=== PATIENT | male | born 1990 | race Caucasian/White ===

== ENCOUNTER 2020-11-23 08:15 | Outpatient (CLI) | payer BC | END 2020-11-23 08:16 | disposition home or self-care (01) | LOC: BICMRI 08:15 | PROVIDERS: ATTEND Orthopaedic Surgery | DX: S83.8X1A Sprain of other specified parts of right knee, initial encounter (principal) ==

== ENCOUNTER 2020-12-04 09:56 | Outpatient (CLI) | payer BC ==
[2020-12-04 11:12] LABS: #Basophils 0.1 10x3/uL (0.0-0.2); #Eosinphils 0.3 10x3/uL (0.0-0.5); #Monocytes 0.5 10x3/uL (0.0-1.1); #Neutrophils 4.1 10x3/uL (1.5-8.4); %Basophils 1.1 % (0.0-2.0); %Eosinophils 3.9 % (0.0-6.0); %Lymphocytes 22.6 % (18.0-47.0); %Monocytes 7.5 % (0.0-10.0); %Neutrophils 64.6 % (40.0-75.0); Hemoglobin 14.5 g/dL (13.5-17.5); Mean Corpuscular HGB CONC 34.7 g/dL (32.0-36.0); Mean Corpuscular Hemoglobin 28.9 pg (27.0-33.0); Mean Corpuscular Volume 83.3 fl (81.2-95.1); Mean Platelet Volume 9.9 fl (7.4-10.4); Platelet Count 268 10x3/uL (150-450); RBC Distribution Width 13.2 % (11.5-14.5); Red Blood Cell (RBC) Count 5.02 10x6/uL (4.32-5.72); White Blood Cell (WBC) Count 6.4 10x3/uL (3.5-10.5)
[2020-12-05 00:53] LABS: SARS-CoV-2 PCR by NAA Not Detected (NotDetected)
== END 2020-12-04 09:57 | disposition home or self-care (01) ==
LOC: LABBT 09:56
PROVIDERS: ATTEND Orthopaedic Surgery
DX: Z01.812 Encounter for preprocedural laboratory examination (principal); S86.811A Strain of other muscle(s) and tendon(s) at lower leg level, right leg, initial encounter; Z20.822 Contact with and (suspected) exposure to COVID-19
CPT/HCPCS: 85025; U0003; U0005

== ENCOUNTER 2020-12-09 07:05 | Day surgery (SDC) | payer BC ==
[2020-12-08 09:49] VITALS: BMI 27.1
[2020-12-09] MEDS ORDERED: ceFAZolin 2 GM/DEX 5% 100 ML BAG ONE (07:44)
[2020-12-09] MEDS ORDERED: Midazolam HCl 2 mg/2 ml Vial ONE ×2 (07:56→08:24)
[2020-12-09] MEDS ORDERED: Fentanyl 100 MCG/2 ML VIAL ONE ×3 (07:56→09:57)
[2020-12-09] MEDS ORDERED: Ondansetron PF 4 MG/2 ML Vial ONE (08:29)
[2020-12-09] MEDS ORDERED: Bupivacaine HCl 0.5%/Epinephrine 1:200,000/PF 30 ml Vial ONE (08:29)
[2020-12-09] MEDS ORDERED: PROPOFOL 200 MG/20 ML VIAL ONE (08:29)
[2020-12-09] MEDS ORDERED: Dexamethasone 20 MG/5 ML VIAL ONE (08:29)
[2020-12-09] MEDS ORDERED: Glycopyrrolate 0.2 MG/ML 5 ML SYRINGE ONE (08:29)
[2020-12-09] MEDS ORDERED: Ketorolac Tromethamine 30 MG/ML VIAL IVP PRN (09:45)
[2020-12-09] MEDS ORDERED: Ondansetron PF 4 MG/2 ML Vial IVP PRN (09:45)
[2020-12-09] MEDS ORDERED: HYDROcodone/Acetaminophen 10/325 mg Tablet PO PRN ×2 (09:45)
[2020-12-09] MEDS ORDERED: Zolpidem Tartrate 5 MG TAB PO PRN (09:45)
[2020-12-09] MEDS ORDERED: Ropivacaine 0.2% 550 ML 550 ML NERVE BLCK SCH (09:45)
[2020-12-09] MEDS ORDERED: Promethazine HCl 25 MG/ML VIAL IM PRN (09:45)
[2020-12-09] MEDS ORDERED: traMADol HCl 50 MG TAB PO PRN ×2 (09:45)
[2020-12-09] MEDS ORDERED: Ondansetron ODT 4 MG TAB ONE (13:02)
== END 2020-12-09 13:16 | disposition home or self-care (01) ==
LOC: SDC 07:05
PROVIDERS: ATTEND Orthopaedic Surgery
PROC: 3E0T3BZ Introduction of Anesthetic Agent into Peripheral Nerves and Plexi, Percutaneous Approach (ICD-10-PCS; principal; 2020-12-09)
PROC: 0SBC4ZZ Excision of Right Knee Joint, Percutaneous Endoscopic Approach (ICD-10-PCS; principal; 2020-12-09)
PROC: 0QSD0ZZ Reposition Right Patella, Open Approach (ICD-10-PCS; principal; 2020-12-09)
DX: S76.111A Strain of right quadriceps muscle, fascia and tendon, initial encounter (principal); S86.811A Strain of other muscle(s) and tendon(s) at lower leg level, right leg, initial encounter; M23.8X1 Other internal derangements of right knee; X58.XXXA Exposure to other specified factors, initial encounter; Y93.64 Activity, baseball
CPT/HCPCS: 76000; A4306; C1713; J1100; J2250; J2405; J2704; J2795; J3010; Q0162

== ENCOUNTER 2023-01-16 08:19 | Outpatient (CLI) | payer BC ==
[2023-01-16 08:50] LABS: #Basophils 0.1 10x3/uL (0.0-0.2); #Eosinphils 0.5 10x3/uL (0.0-0.5); #Monocytes 0.4 10x3/uL (0.0-1.1); #Neutrophils 2.9 10x3/uL (1.5-8.4); %Basophils 1.3 % (0.0-2.0); %Lymphocytes 27.2 % (18.0-47.0); %Monocytes 6.9 % (0.0-10.0); %Neutrophils 55.4 % (40.0-75.0); Hematocrit 45.6 % (38.8-50.0); Hemoglobin 15.6 g/dL (13.5-17.5); Mean Corpuscular HGB CONC 34.2 g/dL (32.0-36.0); Mean Corpuscular Hemoglobin 28.8 pg (27.0-33.0); Mean Corpuscular Volume 84.3 fl (81.2-95.1); Mean Platelet Volume 9.6 fl (7.4-10.4); Platelet Count 228 10x3/uL (150-450); RBC Distribution Width 13.2 % (11.5-14.5); Red Blood Cell (RBC) Count 5.41 10x6/uL (4.32-5.72); White Blood Cell (WBC) Count 5.2 10x3/uL (3.5-10.5)
== END 2023-01-16 08:20 | disposition home or self-care (01) ==
LOC: LABBT 08:19
PROVIDERS: ATTEND Orthopaedic Surgery
DX: Z01.812 Encounter for preprocedural laboratory examination (principal); M75.122 Complete rotator cuff tear or rupture of left shoulder, not specified as traumatic; M75.22 Bicipital tendinitis, left shoulder
CPT/HCPCS: 85025

== ENCOUNTER 2023-01-19 08:31 | Day surgery (SDC) | payer BC ==
[2023-01-16 08:36] VITALS: BMI 27.1
[2023-01-19] MEDS ORDERED: Rocuronium Bromide 10 MG/ML (10ML VIAL) ONE ×2 (08:57→10:20)
[2023-01-19] MEDS ORDERED: PROPOFOL 20 ML ONE (08:57)
[2023-01-19] MEDS ORDERED: Lidocaine 1% (PF) 30 ML VIAL ONE (09:25)
[2023-01-19] MEDS ORDERED: CEFAZOLIN 2 GM VIAL ONE (09:25)
[2023-01-19] MEDS ORDERED: EPINEPHrine 1 MG/ML VIAL ONE (09:25)
[2023-01-19] MEDS ORDERED: fentaNYL 50 mcg/mL 1 mL Vial ONE (09:39)
[2023-01-19] MEDS ORDERED: Ropivacaine 0.2% HCl/PF 20 ML ONE (09:39)
[2023-01-19] MEDS ORDERED: Ropivacaine 0.5% HCl/PF (150 MG/30 ML VIAL) ONE (09:39)
[2023-01-19] MEDS ORDERED: Midazolam HCl 2 mg/2 ml Vial ONE (09:39)
[2023-01-19] MEDS ORDERED: fentaNYL PF 100 MCG/2 ML SYRINGE ONE (10:03)
[2023-01-19] MEDS ORDERED: Ropivacaine 0.2% 550 ML 550 ML NERVE BLCK SCH (10:15)
[2023-01-19] MEDS ORDERED: Zolpidem Tartrate 5 MG TAB PO PRN (10:15)
[2023-01-19] MEDS ORDERED: Ondansetron PF 4 MG/2 ML Vial IVP PRN (10:15)
[2023-01-19] MEDS ORDERED: traMADol HCl 50 MG TAB PO PRN ×2 (10:15)
[2023-01-19] MEDS ORDERED: HYDROcodone/Acetaminophen 10/325 mg Tablet PO PRN ×2 (10:15)
[2023-01-19] MEDS ORDERED: Promethazine HCl 25 MG/ML VIAL IM PRN (10:15)
[2023-01-19] MEDS ORDERED: fentaNYL 50 mcg/mL 1 mL Vial SLOW IVP PRN (10:16)
[2023-01-19] MEDS ORDERED: PROPOFOL 200 MG/20 ML VIAL ONE (10:20)
[2023-01-19] MEDS ORDERED: Dexamethasone 20 MG/5 ML VIAL ONE (10:20)
[2023-01-19] MEDS ORDERED: Ondansetron PF 4 MG/2 ML Vial ONE ×2 (10:20→10:49)
[2023-01-19] MEDS ORDERED: Ketorolac Tromethamine 30 MG/ML VIAL IVP SCH (12:00)
[2023-01-19] MEDS ORDERED: Meperidine HCl/PF 25 MG/ML VIAL ONE (12:57)
== END 2023-01-19 15:33 | disposition home or self-care (01) ==
LOC: SDC 08:31
PROVIDERS: ATTEND Orthopaedic Surgery
PROC: 0LS40ZZ Reposition Left Upper Arm Tendon, Open Approach (ICD-10-PCS; principal; 2023-01-19)
PROC: 0LS44ZZ Reposition Left Upper Arm Tendon, Percutaneous Endoscopic Approach (ICD-10-PCS; principal; 2023-01-19)
PROC: 0PBB4ZZ Excision of Left Clavicle, Percutaneous Endoscopic Approach (ICD-10-PCS; principal; 2023-01-19)
DX: M75.122 Complete rotator cuff tear or rupture of left shoulder, not specified as traumatic (principal); M75.22 Bicipital tendinitis, left shoulder; M19.012 Primary osteoarthritis, left shoulder; E78.5 Hyperlipidemia, unspecified; Z98.890 Other specified postprocedural states; Z79.899 Other long term (current) drug therapy
CPT/HCPCS: A4306; C1713; J0171; J1100; J2001; J2175; J2250; J2405; J2704; J2795; J3010